=== PATIENT | female | born 1935 | race Caucasian/White ===

== ENCOUNTER 2018-08-22 19:43 | Inpatient (IN) | payer MEDICARE, BC ==
[~2018-08-22] VITALS: Wt 44.8 kg
[~2018-08-22 19:43] MED LIST: 00186-0370-20 IH; AMITRIPTYLINE H10 M1 PO; ANTIVERT 25MG25 MG PO; ASA; ASPIRIN E.C. 8181 MG PO; ATIVAN 0.50.5 MG/TAB PO; BUTAL; CAFF; COLACE 100100 MG/CAP PO; DULCOLAX S10 MG/SUPP RC; FENTANYL 25 MCG TOP; IMODIUM 2MG CAPS2 MG PO; IPRATROPIUM BROM3 M1 IH; LIPITOR 10MG10 MG PO; LOPRESSOR 225 MG/TAB PO; MACROBID 1100 MG/CAP PO; MIRALAX PA17 GM/Dose PO; NITROSTAT0.4 MG/TAB SL; NORCO 325 MG-51 TAB PO; NORCO 325 MG-7.1 TAB PO; OSCAL 500 TAB500 MG PO; PEPCID 20MG TAB20 MG PO; PLAVIX 75MG TAB75 MG PO; PROAIR HFA0.09 MG/AC IH; RECLAST5 MG/100 M IV; REMERON 15M15 MG/TA1 PO; RT ADVAIR HFA 1112 G INH; RT SPIRIVA18 MCG INH; SENOKOT S 50 MG1 TAB PO; SINGULAIR 110 MG/TAB PO; SPIRIVA18 MCG IH; TYLENOL 325MG325 MG PO; VASOTEC 10M10 MG/TAB PO; VENTOLIN0.09 MG IH; VITAMIN D32000 IU PO; ZOFRAN 4MG T4 MG/TAB PO; ZOFRAN INJ4 MG/2 ML IV; ZOFRAN ODT4 MG PO
[2018-08-22 20:35] LABS: BASO # 0.1 (0.0-0.2); BASO % 0.6 % (0.0-2.0); EOS # 0.1 (0.0-0.7); EOS % 0.7 % (0-4.0); GRAN # 10.3 (1.4-6.5); HEMATOCRIT 42.7 % (37.0-47.0); HEMOGLOBIN 13.9 g/dl (12.5-16.0); MEAN CELL VOLUME 95 fl (80.0-100.0); MEAN CORPUSCULAR HEMOGLOBIN 31 pg (27.0-31.0); MEAN CORPUSCULAR HGB CONC 33 g/dl (33.0-37.0); MEAN PLATELET VOLUME 9.7 fl (7.4-10.4); MONO # 0.8 (0.1-0.6); MONO % 6.3 % (1.7-9.3); PLATELET COUNT 305 K/mm3 (130-400); REDCELL DISTRIBUTION WIDTH-CV 13.2 % (11.5-14.5)
[2018-08-22 20:45] LABS: ALANINE AMINOTRANSFERASE 32 U/L (9-52); ALBUMIN 4.4 gm/dL (3.5-5.0); ALKALINE PHOSPHATASE 90 U/L (50-136); ANION GAP 10 mmol/L (7-16); AST,SGOT 26 U/L (15-37); BILIRUBIN,TOTAL 0.9 mg/dL (0.0-1.0); BLOOD UREA NITROGEN 23 mg/dL (7-17); CALCIUM 9.5 mg/dL (8.4-10.2); CARBON DIOXIDE 24 mmol/L (22-30); CHLORIDE 105 mmol/L (98-107); CREATININE, serum 0.84 mg/dL (0.52-1.25); GLUCOSE 96 mg/dL (74-106); POTASSIUM 4.1 mmol/L (3.4-5.0); SODIUM 140 mmol/L (137-145); TOTAL PROTEIN 8.2 gm/dL (6.4-8.2)
[2018-08-22 20:47] LABS: C-REACTIVE PROTEIN < 0.5 mg/dL (0.0-0.9)
[2018-08-22 20:52] LABS: ARTERIAL BLD GAS O2 SATURATION 93.3 % (92-100); ARTERIAL BLD GAS TCO2 CT 22.3; ARTERIAL BLOOD GAS BASE EXCESS -2.5 (-2-2); ARTERIAL BLOOD GAS HCO3 21.3 meq/L (22-26); ARTERIAL BLOOD GAS PCO2 33.9 mmHg (35-45); ARTERIAL BLOOD GAS PO2 67.1 mmHg (80-100); ARTERIAL BLOOD GAS pH 7.42 (7.35-7.45)
[2018-08-22 20:54] LABS: TROPONIN-I < 0.012 ng/mL (0.000-0.034)
[2018-08-22 22:36] LABS: INR 1.1 (0.8-3.0); PROTHROMBIN TIME 12.1 SECONDS (9.7-12.8)
[2018-08-22 22:39] LABS: PARTIAL THROMBOPLASTIN TIME 27.1 SECONDS (26.0-37.0)
[2018-08-22] MEDS ORDERED: SPIRIVA RE2.5 MCG/Ac INH (23:53)
[2018-08-22] MEDS ORDERED: SYNTHROID0.05 MG/TA PO (23:55)
[2018-08-22] MEDS ORDERED: COZAAR100 MG PO (23:56)
[2018-08-22] MEDS ORDERED: BYSTOLIC5 MG PO (23:56)
[2018-08-23] VITALS (463 sets, daily range): BP systolic 99–153; BP diastolic 61–88; PULSE 51–84; TEMP 97.7–97.9; O2SAT 92–100
[2018-08-23 05:55] LABS: HEMOGLOBIN 13.7 g/dl (12.5-16.0); MEAN CELL VOLUME 95 fl (80.0-100.0); MEAN CORPUSCULAR HEMOGLOBIN 31 pg (27.0-31.0); MEAN CORPUSCULAR HGB CONC 33 g/dl (33.0-37.0); MEAN PLATELET VOLUME 9.8 fl (7.4-10.4); PLATELET COUNT 303 K/mm3 (130-400); RED BLOOD COUNT 4.41 M/mm3 (4.10-5.30); REDCELL DISTRIBUTION WIDTH-CV 13.2 % (11.5-14.5)
[2018-08-23 06:09] LABS: CALCIUM 9.3 mg/dL (8.4-10.2); CREATININE, serum 0.77 mg/dL (0.52-1.25); POTASSIUM 4.6 mmol/L (3.4-5.0)
[2018-08-23 07:09] LABS: BAND 8 % (0-10); LYMPHOCYTE 4 % (20.0-51.0); NEUTROPHILS 87 % (42.0-75.2); PLATELET ESTIMATE NORMAL (NORMAL)
[2018-08-23 07:10] LABS: HYPOCHROMIA 1+
[2018-08-24 03:06] VITALS: BP 111/57; PULSE 84
[2018-08-24 07:15] VITALS: BP 111/59; PULSE 62; TEMP 97.8
[2018-08-24] MEDS ORDERED: ELIQUIS 5MG PO (09:19)
[2018-08-24] MEDS ORDERED: PREDNISONE20 MG PO (09:19)
[2018-08-24 11:32] VITALS: BP 110/59; PULSE 74; TEMP 97.8
[2018-08-24 13:02] LABS: COLLECTION METHOD CLEAN CATCH
[2018-08-24 13:13] LABS: MUCOUS Present /lpf; PH 5 (5-8); SQUAMOUS EPITHELIAL 0-2 /hpf; URINE APPEARANCE Clear; URINE BACTERIA None Seen /hpf; URINE BILIRUBIN Negative (NEGATIVE); URINE BLOOD Negative (NEGATIVE); URINE COLOR Yellow; URINE GLUCOSE Negative (NEGATIVE); URINE KETONE Negative (NEGATIVE); URINE LEUKOCYTE ESTERASE 1+ (NEGATIVE); URINE NITRATE Negative (NEGATIVE); URINE PROTEIN(semi-quant) 1+ (NEGATIVE); URINE UROBILINOGEN Negative (NEGATIVE)
== END 2018-08-24 15:15 | disposition home or self-care (01) | DRG 175 ==
LOC: COL.ER 19:43 → MEDICAL 22:45 → ICU 22:45 → MEDICAL 08-23 15:36
PROVIDERS: Emergency Medicine; Hospitalist; Nurse Practitioner Family
DX: I26.99 Other pulmonary embolism without acute cor pulmonale (principal); J96.21 Acute and chronic respiratory failure with hypoxia; I82.412 Acute embolism and thrombosis of left femoral vein; Z66 Do not resuscitate; I10 Essential (primary) hypertension; J44.9 Chronic obstructive pulmonary disease, unspecified; E78.5 Hyperlipidemia, unspecified; I25.10 Atherosclerotic heart disease of native coronary artery without angina pectoris; Z87.891 Personal history of nicotine dependence
CPT/HCPCS: OP; 99239; G0378; G8978-GP; G8979-GP; G8987-GO; G8988-GO; J1650; J7512; Q9967

== ENCOUNTER 2018-12-22 18:36 | Inpatient (IN) | payer MEDICARE, BC ==
[~2018-12-22] VITALS: Ht 162.6 cm; Wt 47.0 kg
[~2018-12-22 18:36] MED LIST changes: +BYSTOLIC5 MG PO; +COZAAR100 MG PO; +ELIQUIS 5MG PO; +PREDNISONE20 MG PO; +SPIRIVA RE2.5 MCG/Ac INH; +SYNTHROID0.05 MG/TA PO
[2018-12-22 19:26] LABS: BASO % 0.4 % (0.0-2.0); EOS # 0.1 (0.0-0.7); EOS % 0.7 % (0-4.0); GRAN # 8.4 (1.4-6.5); GRAN % 87.5 % (42.2-75.2); HEMATOCRIT 39.6 % (37.0-47.0); HEMOGLOBIN 12.9 g/dl (12.5-16.0); LYMPH # 0.5 (1.2-3.4); LYMPH % 5.4 % (20.0-51.0); MEAN CELL VOLUME 94 fl (80.0-100.0); MEAN CORPUSCULAR HEMOGLOBIN 31 pg (27.0-31.0); MEAN CORPUSCULAR HGB CONC 33 g/dl (33.0-37.0); MEAN PLATELET VOLUME 9.7 fl (7.4-10.4); MONO # 0.5 (0.1-0.6); MONO % 5.5 % (1.7-9.3); PLATELET COUNT 273 K/mm3 (130-400); REDCELL DISTRIBUTION WIDTH-CV 13.2 % (11.5-14.5)
[2018-12-22 19:40] LABS: ALANINE AMINOTRANSFERASE 12 U/L (9-52); ALBUMIN 4.1 gm/dL (3.5-5.0); ALKALINE PHOSPHATASE 95 U/L (50-136); ANION GAP 10 mmol/L (7-16); AST,SGOT 24 U/L (15-37); BILIRUBIN,TOTAL 0.7 mg/dL (0.0-1.0); BLOOD UREA NITROGEN 18 mg/dL (7-17); C-REACTIVE PROTEIN 0.6 mg/dL (0.0-0.9); CALCIUM 8.8 mg/dL (8.4-10.2); CARBON DIOXIDE 25 mmol/L (22-30); CHLORIDE 102 mmol/L (98-107); CREATININE, serum 0.78 (0.52-1.25); GLUCOSE 134 mg/dL (74-106); POTASSIUM 4.4 mmol/L (3.4-5.0); SODIUM 137 mmol/L (137-145); TOTAL PROTEIN 7.8 gm/dL (6.4-8.2)
[2018-12-22 19:49] LABS: TROPONIN-I < 0.012 ng/mL (0.000-0.035)
[2018-12-22 19:58] LABS: ARTERIAL BLD GAS O2 SATURATION 96.8 % (92-100); ARTERIAL BLD GAS TCO2 CT 22.4; ARTERIAL BLOOD GAS BASE EXCESS -3.1 (-2-2); ARTERIAL BLOOD GAS HCO3 21.3 meq/L (22-26); ARTERIAL BLOOD GAS PCO2 36.2 mmHg (35-45); ARTERIAL BLOOD GAS PO2 91.6 mmHg (80-100); ARTERIAL BLOOD GAS pH 7.39 (7.35-7.45)
[2018-12-22] MEDS ORDERED: ZOCOR 10MG10 MG PO (19:58)
--- NOTE | 2018-12-22 21:14 | NUR ---
Report received from DANIELE Yeager
[2018-12-22] MEDS ORDERED: ELIQUIS 5MG PO ×2 (21:26→21:34)
[2018-12-22] MEDS ORDERED: SPIRIVA RE2.5 MCG/Ac IH (21:32)
--- NOTE | 2018-12-22 22:15 | NUR ---
Patient arrived from ED. Resting in bed. Assesment complete. Lungs diminished all ramos. Denies SOA at this time. On 3 liters via nasal cannula. Cough present. Patient reports productive at times. On droplet precautions for pending RVP. Heart sounds normal. Bowels active x4. Pulses strong throughout. No edema noted. Abrasion to left lower leg present-scabbed over. Denies any patient. Orientated patient to medical floor and room. Call light is within reach of patient. INT to right hand without complications. Denies needs at this time.
[2018-12-22 22:31] VITALS: BP 135/57; PULSE 73; TEMP 98.6
--- NOTE | 2018-12-22 23:45 | NUR ---
Started IV fluids as ordered. Site free of complications at this time.
--- NOTE | 2018-12-23 00:57 | NUR ---
Resting in bed. Call light in reach.
--- NOTE | 2018-12-23 03:30 | NUR ---
Resting in bed. Denies needs. Call light in reach.
[2018-12-23 04:26] VITALS: BP 126/54; PULSE 72; TEMP 98.5
--- NOTE | 2018-12-23 06:20 | NUR ---
Patient had uneventful night. No complaints of difficulty breathing. Resting in bed this AM, reading breakfast menu. Denies needs. IV to right hand infusing at 125ml/hr without complications. Call light in reach.
--- NOTE | 2018-12-23 06:42 | NUR ---
Report given to DANIELE Ley
[2018-12-23 07:40] VITALS: BP 170/75; PULSE 89; TEMP 97.9
--- NOTE | 2018-12-23 08:16 | NUR ---
Assessment complete.patient awake,alert and oriented x3.denies pain or discomfort at this time.bilat upper lobes exp. wheezes,bilat lung bases diminished.breathing jagjit and unlabored.patient on 2l/nc and stats at 97%.IVF infusing to RH.linens changed and hygiene provided.pt on droplet isolation-RVP pending.no other needs voiced at this time.call light in reach
[2018-12-23 08:40] LABS: HEMATOCRIT 37.4 % (37.0-47.0); HEMOGLOBIN 12.1 g/dl (12.5-16.0); MEAN CELL VOLUME 95 fl (80.0-100.0); MEAN CORPUSCULAR HEMOGLOBIN 31 pg (27.0-31.0); MEAN CORPUSCULAR HGB CONC 32 g/dl (33.0-37.0); MEAN PLATELET VOLUME 10.3 fl (7.4-10.4); PLATELET COUNT 292 K/mm3 (130-400); RED BLOOD COUNT 3.93 M/mm3 (4.10-5.30)
[2018-12-23 08:54] LABS: ALBUMIN 3.7 gm/dL (3.5-5.0); BILIRUBIN,TOTAL 0.6 mg/dL (0.0-1.0); CALCIUM 8.1 mg/dL (8.4-10.2); CREATININE, serum 0.67 (0.52-1.25); POTASSIUM 4.1 mmol/L (3.4-5.0); TOTAL PROTEIN 7.2 gm/dL (6.4-8.2)
[2018-12-23 11:47] VITALS: BP 159/78; PULSE 79; TEMP 97.4
[2018-12-23 12:03] LABS: COLLECTION METHOD CATHETER
--- NOTE | 2018-12-23 12:09 | NUR ---
PHYSICAL THERAPIST REPORTS PT IV INFILTRATED.THIS RN ASSESSED IV AND NOTED INFILTRATION AND HEMATOMA AT IV SIDE-RIGHT HAND.PT IS ON ELIQUIS.PRESSURE APPLIED.NEW IV STARTED TO LEFT HAND.WILL CONTINUE TO MONITOR.
[2018-12-23 12:18] LABS: SQUAMOUS EPITHELIAL 0-2 /hpf; URINE BACTERIA None Seen /hpf; URINE RBC 0-2 /hpf
[2018-12-23 12:24] LABS: MUCOUS Present /lpf; PH 6 (5-8); URINE APPEARANCE Clear; URINE BILIRUBIN Negative (NEGATIVE); URINE BLOOD 1+ (NEGATIVE); URINE COLOR Yellow; URINE GLUCOSE 1+ (NEGATIVE); URINE KETONE Trace (NEGATIVE); URINE LEUKOCYTE ESTERASE Negative (NEGATIVE); URINE NITRATE Negative (NEGATIVE); URINE PROTEIN(semi-quant) Negative (NEGATIVE); URINE UROBILINOGEN Negative (NEGATIVE)
[2018-12-23 13:12] LABS: BAND 1 % (0-10); LYMPHOCYTE 8 % (20.0-51.0); NEUTROPHILS 91 % (42.0-75.2); PLATELET ESTIMATE NORMAL (NORMAL)
--- NOTE | 2018-12-23 14:44 | NUR ---
Plan: Patient reports that she resides in [facility] with her Jerson. Patient reoprts that she does not believe she iwll need home health care. Patient indicated that her PCP is Dr. Epifanio Carrasco. Patient reports that uses of [facility] for RX and uses a walker PRN and and 02 concentrator at home. Patient reports that he spouse will transport home. DPOA set to Jerson at . NO additonal needs identified at this time/
[2018-12-23 15:24] VITALS: BP 110/81; PULSE 76; TEMP 98
--- NOTE | 2018-12-23 17:25 | NUR ---
pt had a shower.states feels better.all meds given.VSS.denies any other needs at this time.report given to DANIELE Fraga.
--- NOTE | 2018-12-23 19:15 | NUR ---
Report given to Montse SANABRIA, pt denies needs, eating dinner, call ronen farrell
[2018-12-23 19:58] VITALS: BP 164/85; PULSE 76; TEMP 97.3
[2018-12-24 00:13] VITALS: BP 130/73; PULSE 75; TEMP 97.7
[2018-12-24 03:53] VITALS: BP 129/77; PULSE 73; TEMP 97.7
--- NOTE | 2018-12-24 04:38 | NUR ---
PT HAD UNEVENTFUL NOC. NO C/O PAIN OR N/V/D NOTED THIS SHIFT. PT PLEASANT AND COOPERATIVE WITH CARES. PT REMAINS ON DROPPLET PRECAUTIONS FOR PENDING RESPERTORY VIRUS PANEL. SPUTUM SAMPLE HASNT BEEN OBTIANED YET DUE TO NOT CAUGHING UP SPUTUM, CONTIANER LEFT AT BEDISDE. NO ISSUES OR CONSERNS VOICED
[2018-12-24 06:38] LABS: HEMOGLOBIN 11.1 g/dl (12.5-16.0); MEAN CELL VOLUME 93 fl (80.0-100.0); MEAN CORPUSCULAR HEMOGLOBIN 31 pg (27.0-31.0); MEAN CORPUSCULAR HGB CONC 33 g/dl (33.0-37.0); MEAN PLATELET VOLUME 10.1 fl (7.4-10.4); PLATELET COUNT 274 K/mm3 (130-400); RED BLOOD COUNT 3.62 M/mm3 (4.10-5.30); REDCELL DISTRIBUTION WIDTH-CV 13.2 % (11.5-14.5)
[2018-12-24 06:40] LABS: HEMATOCRIT 33.8 % (37.0-47.0)
[2018-12-24 06:47] LABS: CALCIUM 8.2 mg/dL (8.4-10.2); CREATININE, serum 0.67 (0.52-1.25); POTASSIUM 3.7 mmol/L (3.4-5.0)
[2018-12-24 07:28] LABS: LYMPHOCYTE 5 % (20.0-51.0); NEUTROPHILS 93 % (42.0-75.2); PLATELET ESTIMATE NORMAL (NORMAL)
[2018-12-24 07:58] VITALS: BP 133/70; PULSE 87; TEMP 98.3
--- NOTE | 2018-12-24 08:04 | NUR ---
Pt alert and oriented and remains on oxygen via nasal cannula at 2L. Pt am assessment and meds completed. Pt has SOB with exertion but at rest denies SOB. Pt rates pain 3/10 for headache and managed with PRN Tylenol. Pt IV patent no redness or infiltration noted. Pt call light in reach. Pt denies further needs.
[2018-12-24] MEDS ORDERED: PREDNISONE20 MG PO (10:34)
--- NOTE | 2018-12-24 10:46 | NUR ---
Patient is dc home today with spouse.
--- NOTE | 2018-12-24 11:40 | NUR ---
Pt alert and oriented. Pt given discharge instructions and education. Pt IV discontinued. Pressure held to IV site and no bleeding with pressure dressing applied. Pt remains on oxygen at 2L via nasal cannula and has portable unit to go home with. Pt already dressed. Aide to help gather all belongings. Pt given abx as ordered. Pt called spouse to pick her up. Pt has call light in reach.
== END 2018-12-24 11:30 | disposition home or self-care (01) | DRG 189 ==
LOC: COL.ER 18:36 → MEDICAL 21:00
PROVIDERS: Emergency Medicine; Hospitalist; Nurse Practitioner Family; ADMIT Internal Medicine
DX: J96.21 Acute and chronic respiratory failure with hypoxia (principal); J44.1 Chronic obstructive pulmonary disease with (acute) exacerbation; Z68.1 Body mass index [BMI] 19.9 or less, adult; Z66 Do not resuscitate; J20.5 Acute bronchitis due to respiratory syncytial virus; I10 Essential (primary) hypertension; E86.0 Dehydration; E78.5 Hyperlipidemia, unspecified; I25.10 Atherosclerotic heart disease of native coronary artery without angina pectoris; Z86.711 Personal history of pulmonary embolism; Z79.01 Long term (current) use of anticoagulants; Z86.718 Personal history of other venous thrombosis and embolism; E03.9 Hypothyroidism, unspecified; Z95.5 Presence of coronary angioplasty implant and graft; Z87.891 Personal history of nicotine dependence; B97.4 Respiratory syncytial virus as the cause of diseases classified elsewhere; R63.6 Underweight
CPT/HCPCS: 99239; J2930; J7030; J7512

== ENCOUNTER 2019-04-10 11:59 | Outpatient (CLI) | payer MEDICARE, BC ==
[~2019-04-10] VITALS: Ht 162.6 cm; Wt 48.9 kg
[~2019-04-10 11:59] MED LIST changes: +SPIRIVA RE2.5 MCG/Ac IH; +ZOCOR 10MG10 MG PO
[2019-04-10 12:20] VITALS: BP 195/83; PULSE 72; TEMP 97.7
== END 2019-04-10 14:23 | disposition home or self-care (01) ==
LOC: EUO 11:59
DX: M81.0 Age-related osteoporosis without current pathological fracture (principal)
CPT/HCPCS: J0897

== ENCOUNTER 2019-10-17 11:15 | Outpatient (CLI) | payer MEDICARE, BC ==
[~2019-10-17] VITALS: Ht 162.6 cm; Wt 47.9 kg
[2019-10-17 11:32] VITALS: BP 169/76; PULSE 69; TEMP 97.4
== END 2019-10-17 11:49 | disposition home or self-care (01) ==
LOC: EUO 11:15
DX: M81.0 Age-related osteoporosis without current pathological fracture (principal)
CPT/HCPCS: J0897

== ENCOUNTER 2020-03-01 13:36 | Emergency (ER) | payer MEDICARE, BC ==
[~2020-03-01] VITALS: Ht 162.6 cm; Wt 45.5 kg
[2020-03-01 13:43] VITALS: TEMP 99.8
[2020-03-01] MEDS ORDERED: ULTRAM 50MG TAB50 MG PO (14:39)
[2020-03-01 14:45] VITALS: BP 148/86; PULSE 90
== END 2020-03-01 14:49 | disposition home or self-care (01) ==
LOC: COL.ER 13:36
DX: S63.502A Unspecified sprain of left wrist, initial encounter (principal); I25.10 Atherosclerotic heart disease of native coronary artery without angina pectoris; I10 Essential (primary) hypertension; I25.2 Old myocardial infarction; J44.9 Chronic obstructive pulmonary disease, unspecified; Z79.82 Long term (current) use of aspirin; Z79.899 Other long term (current) drug therapy; Z79.51 Long term (current) use of inhaled steroids; Y92.009 Unspecified place in unspecified non-institutional (private) residence as the place of occurrence of the external cause; W01.0XXA Fall on same level from slipping, tripping and stumbling without subsequent striking against object, initial encounter

== ENCOUNTER 2020-12-28 13:12 | Outpatient (CLI) | payer MEDICARE, BC ==
[~2020-12-28] VITALS: Ht 162.6 cm; Wt 48.9 kg
[~2020-12-28 13:12] MED LIST changes: +ULTRAM 50MG TAB50 MG PO
[2020-12-28] MEDS ORDERED: ELIQUIS 2.5 PO (13:31)
[2020-12-28 14:02] VITALS: BP 108/64; BP 183/94; PULSE 106; PULSE 83; TEMP 97.4; TEMP 97.8
== END 2020-12-28 14:02 | disposition home or self-care (01) ==
LOC: EUO 13:12
DX: M81.0 Age-related osteoporosis without current pathological fracture (principal); Z79.899 Other long term (current) drug therapy
CPT/HCPCS: J0897

== ENCOUNTER 2021-06-21 05:27 | Inpatient (IN) | payer MEDICARE, BC ==
[2021-06-21] VITALS (7 sets, daily range): BP systolic 144–176; BP diastolic 82–112; PULSE 48–146; TEMP 98.1–98.7
[~2021-06-21] VITALS: Ht 170.2 cm; Wt 63.6 kg
[~2021-06-21 05:27] MED LIST changes: +ELIQUIS 2.5 PO
[2021-06-21 05:45] LABS: BASO # 0.1 (0.0-0.2); BASO % 0.5 % (0.0-2.0); EOS % 0.4 % (0-4.0); GRAN # 8.8 (1.4-6.5); GRAN % 86.4 % (42.2-75.2); HEMATOCRIT 41.6 % (37.0-47.0); HEMOGLOBIN 13.7 g/dl (12.5-16.0); LYMPH # 0.7 (1.2-3.4); MEAN CELL VOLUME 94 fl (80.0-100.0); MEAN CORPUSCULAR HEMOGLOBIN 31 pg (27.0-31.0); MEAN CORPUSCULAR HGB CONC 33 g/dl (33.0-37.0); MEAN PLATELET VOLUME 9.8 fl (7.4-10.4); MONO # 0.5 (0.1-0.6); MONO % 5.3 % (1.7-9.3); PLATELET COUNT 320 K/mm3 (130-400); RED BLOOD COUNT 4.42 M/mm3 (4.10-5.30); REDCELL DISTRIBUTION WIDTH-CV 13.4 % (11.5-14.5)
[2021-06-21 05:53] LABS: INR 1.2 (0.8-3.0); PROTHROMBIN TIME 12.8 SECONDS (9.7-12.8)
[2021-06-21 05:56] LABS: PARTIAL THROMBOPLASTIN TIME 25.6 SECONDS (26.0-37.0)
[2021-06-21 06:07] LABS: ALBUMIN 3.9 gm/dL (3.4-4.8); BILIRUBIN,TOTAL 0.9 mg/dL (0.2-1.2); CALCIUM 9.4 mg/dL (8.4-10.2); CREATININE, serum 0.81 mg/dL (0.57-1.11); TOTAL PROTEIN 8.1 gm/dL (6.2-8.1)
[2021-06-21 06:10] LABS: ARTERIAL BLD GAS O2 SATURATION 96.1 % (92-100); ARTERIAL BLOOD GAS BASE EXCESS -3.4 (-2-2); ARTERIAL BLOOD GAS PCO2 31.3 mmHg (35-45); ARTERIAL BLOOD GAS PO2 84.3 mmHg (80-100); ARTERIAL BLOOD GAS pH 7.42 (7.35-7.45)
[2021-06-21 06:46] LABS: TROPONIN-I 0.024 ng/mL (0.00-0.033)
[2021-06-21 06:48] LABS: COLLECTION METHOD CATHETER
[2021-06-21 07:23] LABS: PH 7 (5-8); SQUAMOUS EPITHELIAL None Seen /hpf; URINE APPEARANCE Clear; URINE BACTERIA Rare /hpf; URINE BILIRUBIN Negative (NEGATIVE); URINE BLOOD 1+ (NEGATIVE); URINE COLOR Straw; URINE GLUCOSE Negative (NEGATIVE); URINE KETONE Trace (NEGATIVE); URINE LEUKOCYTE ESTERASE Trace (NEGATIVE); URINE NITRATE Negative (NEGATIVE); URINE PROTEIN(semi-quant) Negative (NEGATIVE); URINE RBC 0-2 /hpf; URINE UROBILINOGEN Negative (NEGATIVE)
[2021-06-21] MEDS ORDERED: BYSTOLIC5 MG PO (11:26)
[2021-06-21] MEDS ORDERED: DRAMAMINE 50MG50 MG PO (11:34)
[2021-06-21] MEDS ORDERED: TYLENOL 500MG500 MG PO (11:35)
--- NOTE | 2021-06-21 14:26 | NUR ---
recieved call from telemetry reporting elevated hr in 140's sustained for "about a minute". pt denying chest pain, sob, dizziness, reports weakness that has been chronic. pt vitals obtained, ekg ordered, physician called with results. new order of metoprolol xr written. before med given pt back in NS in 80's.
--- NOTE | 2021-06-21 17:38 | NUR ---
PT HAD RUN OF A-FLUTTER, RESOLVED AFTER TREATMENT. PT IN SINUS RHYTHM. PT RESTING COMFORTABLY IN BED. IV INFUSING, TOOK MEDICATIONS PRESCRIBED.
--- NOTE | 2021-06-21 22:03 | NUR ---
PT RESTING IN BED. EVENING MEDICATIONS GIVEN. DENIES ANY PAIN. NEW IV STARTED TO R AC, L AC IV INFILTRATED AND DISCONTINUED. DENIED ANY NEEDS. AT THIS TIME. WILL CONTINUE TO MONITOR.
[2021-06-22 04:26] VITALS: BP 154/74; PULSE 72; TEMP 97.8
--- NOTE | 2021-06-22 05:37 | NUR ---
PT HAD A RESTFUL NIGHT. DENIES ANY NEEDS. WILL CONTINUE TO MONITOR.
[2021-06-22 06:38] LABS: MEAN CELL VOLUME 95 fl (80.0-100.0); MEAN CORPUSCULAR HEMOGLOBIN 31 pg (27.0-31.0); MEAN CORPUSCULAR HGB CONC 32 g/dl (33.0-37.0); PLATELET COUNT 324 K/mm3 (130-400); RED BLOOD COUNT 3.91 M/mm3 (4.10-5.30); REDCELL DISTRIBUTION WIDTH-CV 13.7 % (11.5-14.5)
[2021-06-22 06:56] LABS: CALCIUM 7.5 mg/dL (8.4-10.2); CREATININE, serum 0.68 mg/dL (0.57-1.11); POTASSIUM 3.3 mmol/L (3.5-4.5)
[2021-06-22 07:19] VITALS: BP 172/68; PULSE 72; TEMP 97
[2021-06-22 07:28] LABS: BAND 30 % (0-10); LYMPHOCYTE 5 % (20.0-51.0); NEUTROPHILS 65 % (42.0-75.2)
[2021-06-22 07:30] LABS: PLATELET ESTIMATE NORMAL (NORMAL)
[2021-06-22 11:24] VITALS: BP 155/68; PULSE 88; TEMP 97.9
--- NOTE | 2021-06-22 11:59 | NUR ---
Tele informed this RN that patient had a 10 sec run of SVT in the 150's. Patient is asymptomatic. Dr. Montoya notified.
[2021-06-22 13:27] LABS: MAGNESIUM 2.1 mg/dL (1.6-2.6); POTASSIUM 3.7 mmol/L (3.5-4.5)
--- NOTE | 2021-06-22 15:03 | NUR ---
Repairer Shoe Sticks met with patient to discuss discharge planning. Patient lives in [place] with her , Jerson (ph#[phone]) and sees Dr. Carrasco for primary care. Patient picks up medications from [facility] with no difficulties. Patient uses a front wheeled walker at home and reports she is mostly independent with ADLS, however gets some assistance from her , Jerson. Patient reports she has DPOA-HC, however SW did not locate copy in EMR. Patient states she plans to return home upon discharge. SW spoke with patient about Home Health services, however patient reports her does not want HH services in the home. Discharge Plan: Home
[2021-06-22 17:07] VITALS: BP 167/77; PULSE 73; TEMP 97.8
--- NOTE | 2021-06-22 18:57 | NUR ---
Patient has had an ok day. Scheduled meds given. Shift assessment preformed. Patient currently requiring 2 L of O2 via nasal cannula. Fluids running as ordered. Generalized bruising noted. Skin tear on LLE noted, dressing placed. Generalized skin dryness noted. Lung sounds diminished. Patient has dyspnea upon exertion. Patient denies any pain, discomfort, or further needs a this time. Call light in reach. Fall precautions in place.
[2021-06-22 19:39] VITALS: BP 173/94; PULSE 94; TEMP 97.7
--- NOTE | 2021-06-22 20:00 | NUR ---
Patient is resting in bed watching TV. Alert and orientd x 4, VSS, Tele in place. 2L NC. Denies pain, nausea or vomiting. NS at 125 ml/hr. Assessment completed, meds provided, no further needs at this time. Call light within reach.
--- NOTE | 2021-06-22 20:40 | NUR ---
Contacted by RT, who discontinued O2 therapy. Patient over 90's. No need of 02.
[2021-06-23] VITALS (7 sets, daily range): BP systolic 114–178; BP diastolic 68–93; PULSE 68–90; TEMP 97.7–98.7
--- NOTE | 2021-06-23 00:07 | NUR ---
Patient continue at RA and 94% saturation.
--- NOTE | 2021-06-23 01:02 | NUR ---
Patient reports headache in her left side. Tylenol provided. SBP >170, PRN provided.
--- NOTE | 2021-06-23 05:58 | NUR ---
Patient requires antianxiety medication, PRN provided. She would like to talk to SW about going to a usp for some time after discharge since she does not feell that her home will allow her to use a wheelchair to use the bathroom. She wants to come back to her prehosp independence before coming back home.
--- NOTE | 2021-06-23 06:52 | NUR ---
Bedside shift report complete, report received from DANIELE Villegas. Pt. resting in bed, awake. Pt. requesting coffee and denies further needs at this time. Student nurse Zina in room to obtain vitals at this time. Call light and belongings in reach.
--- NOTE | 2021-06-23 06:58 | NUR ---
Patient has had a calm night. She has been receiving fluids. Complained about headache. No further needs. Shift refport given to day shift nurse.
[2021-06-23 07:12] LABS: GRAN # 6.3 K/mm3 (1.4-6.5); GRAN % 88.1 % (42.2-75.2); HEMOGLOBIN 11.5 g/dl (12.5-16.0); LYMPH # 0.4 K/mm3 (1.2-3.4); LYMPH % 5.3 % (20.0-51.0); MEAN CELL VOLUME 94 fl (80.0-100.0); MEAN CORPUSCULAR HEMOGLOBIN 31 pg (27.0-31.0); MEAN CORPUSCULAR HGB CONC 33 g/dl (33.0-37.0); MEAN PLATELET VOLUME 10.3 fl (7.4-10.4); MONO # 0.4 K/mm3 (0.1-0.6); MONO % 5.9 % (1.7-9.3); PLATELET COUNT 336 K/mm3 (130-400); RED BLOOD COUNT 3.74 M/mm3 (4.10-5.30)
[2021-06-23 07:29] LABS: CALCIUM 7.1 mg/dL (8.4-10.2); CREATININE, serum 0.64 mg/dL (0.57-1.11); POTASSIUM 3.8 mmol/L (3.5-4.5)
--- NOTE | 2021-06-23 11:49 | NUR ---
Pt.'s BP elevated. Additonally, Dr. Zavala reports in his note IVF can be discontinued. Dr. Montoya notified via SANDY Lofton. SANDY Lofton reports IVF can be discontinued and is aware, PRN hydralazine has been administered.
--- NOTE | 2021-06-23 12:27 | NUR ---
PARAMJIT Hurtado asked for me to call , Jerson. He had many questions concerning pt's status. I called Jerson and spoke with him concerning [facility] guidelines for status. "I am very angry. I work really hard and now that I need [facility] to pay or have her INPT they won't. She is really sick. " I told Jerson that [facility] YUSUF and I would do everything we could to help him establish a discharge plan that could work for them. I gave him my phone number and requested him to call back if any other questions arose.
--- NOTE | 2021-06-23 16:09 | NUR ---
Appraisal Coordinator was notified that Hospitalist put in IPR screen for patient as she did not feel she was ready to return home at this time. PARAMJIT contacted Katie, IPR Director to give referral. Katie met with patient, who advised she was not interested in going to IPR and wanted to go to a SNF. SW followed up with patient and advised that due to her observation status, a SNF stay would not be covered by Medicare and would be private pay. SW again attempted to speak with patient about IPR, however patient advised she cannot tolerate three hours of therapy a day and would be overwhelmed. Patient advised she can afford private pay, however would like for SW to speak with her , Jerson about it. Patient is agreeable to have referrals sent to [facility], and [facility]. PARAMJIT contacted each facility and faxed referrals. PARAMJIT then contacted patient's Jerson, who is agreeable to patient discharge to SNF however is very upset by the fact that she is observation status. Jerson advised they can afford to private pay but does not think they should have to. PARAMJIT advised Jerson that patient does not meet inpatient criteria at this time. PARAMJIT also facilitated a phone call between Jerson and Sandra, milk condenser. Sandra also spoke with Jerson about patient's status (see immigration case manager note for further detail). Sandra advised that Jerson was upset during the call and that he stated he would be calling his research attorney about this matter. Sandra notified Soledad Dutton, Class A Truck Driver. PARAMJIT was contacted by Michael at [facility] who advised they would be able to accept, however when he contacted Jerson, he was concerned about Jerson's response to patient's status. Michael advised that Jerson stated he was in touch with an research attorney and did not agree that patient should be observation status. PARAMJIT was also contacted by Rachel who requested patient's exercise oximetry. PARAMJIT faxed. Discharge Plan: [facility] has accepted, pending screens from [facility] and [facility]. Also pending financial arrangements as patient is observation status.
--- NOTE | 2021-06-23 16:23 | NUR ---
Directional Bore Operator was contacted by Sharon at [facility] who advised they can accept and would be willing to use the COVID waiver for a skilled stay that way patient does not have to private pay. SW to follow up with patient and about preference for discharge.
--- NOTE | 2021-06-23 16:28 | NUR ---
Video Production Specialist spoke with Rachel at [facility] who advised they can accept and also were open to using the COVID waiver if Hospitalist is open to writing orders for skilled.
--- NOTE | 2021-06-23 17:50 | NUR ---
Pt.'s BP remains elevated after PRN hydralazine has been administered. Dr. Montoya notified on telephone, new order obtained for amlodipine PO.
--- NOTE | 2021-06-23 20:00 | NUR ---
Patient is resting in bed, alert and oriented x 4, hypertensive, Tele in place, 2L O2 NC, denies pain, nausea or vomiting. Assessment completed, meds provided, no further needs at this time. Call light withn reach.
[2021-06-24] VITALS (11 sets, daily range): BP systolic 107–138; BP diastolic 56–87; PULSE 18–154; TEMP 96.5–98.3
--- NOTE | 2021-06-24 06:32 | NUR ---
Patient has been stable along the night. Continues at 2L O2 NC ant taking pills with apple sauce. She had a good time sleeping. Shift report will be given to day nurse.
--- NOTE | 2021-06-24 06:50 | NUR ---
Pt. progressing w/ plan of care. Pt. resting in bed, awake. Student nurse Modesta to help w/ care today along with this speech writer. Pt. requesting PO lorazepam and denies other needs at this time. Call light and belongings in reach.
[2021-06-24 08:12] LABS: CALCIUM 7.5 mg/dL (8.4-10.2); CREATININE, serum 0.65 mg/dL (0.57-1.11); POTASSIUM 4.2 mmol/L (3.5-4.5)
--- NOTE | 2021-06-24 09:01 | NUR ---
Call from Rishabh from ICU tele monitoring. Pt.'s HR elevated up to [address] Montoya notified, Dr. Montoya at bedside to assess pt. Plan for Dr. Leigh to see patient and to get pt. on cardizem drip. Dr. Montoya to place cardizem orders.
--- NOTE | 2021-06-24 09:11 | NUR ---
Dr. Leigh in to see patient at this time. Dr. Leigh requesting to hold off on administering pt.'s bisprolol and losartan at this time. Dr. Leigh reports new orders will be placed for a cardizem drip. Pt. reports feeling slightly better since IV lopressor has been administered. Pt.'s HR still up to 145 at this time, Dr. Leigh at bedside and aware.
--- NOTE | 2021-06-24 09:53 | NUR ---
Pt. remains asymptomatic, HR is 145. Cardizem drip initiated at 0930. Dr. Leigh notified [id number] regarding persistent elevated HR. Dr. Leigh reports it may take up to an hour for heart rate to decrease on cardizem drip, and requesting rate to remain at 3ml/hr for this moment.
--- NOTE | 2021-06-24 11:04 | NUR ---
Pt. has been on the rate of 5ml/hr cardizem drip for 40 minutes. Pt.'s HR still between 127-163bpm. BP stable, pt. remains asymptomatic. Nurse Serena Crawford notified on telephone, she is working alongside Dr. Liegh today. Nurse Lyons reports she will discuss plan of care w/ Dr. Leigh and call this RN back.
--- NOTE | 2021-06-24 14:12 | NUR ---
[employer]en Fishing Crew Member followed up with patient's , Jerson and advised that both [facility] and [facility] advised they would be willing to utilize the COVID waiver to bring patient in under her Medicare. Jerson stated he was happy with this news and will contact patient to discuss preference. Jerson followed up with SW after conversation with patient and advised both he and patient prefer [facility]. SW notified all three facilities on patient's preference. Sharon with [facility] advised they would be able to accept today. During rounds, it was discovered that patient is in AFib and would not be ready for discharge today. Patient to be upgraded to inpatient status. SW updated patient's , Jerson. Discharge Plan: [facility]
--- NOTE | 2021-06-24 14:29 | NUR ---
Primary nurse was assisted with [phone] patient care by [employer] student Modesta Yates and [employer] instructor Jessie Méndez MSN, RN
--- NOTE | 2021-06-24 15:50 | NUR ---
Pt. en route for cardioversion, DANIELE Devries bringing pt. to procedure room. Pt. and agreeable w/ plan of care.
--- NOTE | 2021-06-24 17:52 | NUR ---
Call from Dr. Leigh received this afternoon regarding pt.'s sotalol PO and cardizem drip. Dr. Leigh instructed this RN to administer sotalol and wait one hour, and to stop cardizem drip. One hour has passed. Cardizem drip stopped at this time.
--- NOTE | 2021-06-24 20:00 | NUR ---
Patient is lying in bed, alert and oriented, VSS, Tele in place NSR, 2L O2 NC, denies pain, nausea or vomiting, Assessment completed, meds provided, no further needs at this time. Call light within reach.
[2021-06-25 02:48] VITALS: BP 147/72; PULSE 65; TEMP 98
--- NOTE | 2021-06-25 06:10 | NUR ---
Patient had a calm night without further heart issues. Shift report will be given to day nurse.
[2021-06-25 06:36] LABS: BASO % 0.1 % (0.0-2.0); GRAN # 9.1 K/mm3 (1.4-6.5); GRAN % 87.1 % (42.2-75.2); HEMATOCRIT 37.6 % (37.0-47.0); HEMOGLOBIN 12.3 g/dl (12.5-16.0); LYMPH # 0.5 K/mm3 (1.2-3.4); MEAN CELL VOLUME 94 fl (80.0-100.0); MEAN CORPUSCULAR HEMOGLOBIN 31 pg (27.0-31.0); MEAN CORPUSCULAR HGB CONC 33 g/dl (33.0-37.0); MEAN PLATELET VOLUME 10.4 fl (7.4-10.4); MONO # 0.7 K/mm3 (0.1-0.6); PLATELET COUNT 317 K/mm3 (130-400); RED BLOOD COUNT 3.99 M/mm3 (4.10-5.30); REDCELL DISTRIBUTION WIDTH-CV 14.6 % (11.5-14.5)
[2021-06-25 07:04] VITALS: BP 142/69; PULSE 70; TEMP 97.6
[2021-06-25 07:52] LABS: CREATININE, serum 0.74 mg/dL (0.57-1.11)
--- NOTE | 2021-06-25 09:52 | NUR ---
Initial visit; Patient thanked Histopath Tech for looking in on her, offering spiritual care and to keep her in Histopath Tech's prayers.
[2021-06-25 11:23] VITALS: BP 146/75; PULSE 73; TEMP 98.2
--- NOTE | 2021-06-25 14:13 | NUR ---
Primary nurse was assisted with [phone] patient care by [employer] student Modesta Yates and [employer] instructor Jessie Méndez MSN, RN
[2021-06-25 15:20] VITALS: BP 153/81; PULSE 73; TEMP 97.6
--- NOTE | 2021-06-25 16:05 | NUR ---
Line Out Worker faxed clinical updates to Sharon at [facility] who advised they can accept patient on Monday, not over the weekend. Patient reviewed this with Hospitalist who is agreeable to this plan. Discharge Plan: [facility]
--- NOTE | 2021-06-25 19:41 | NUR ---
Patient assessed at this time. Denies pain and discomfort. Peripheral INT to right AC. On oxygen at 2 L/min via NC. Reports SOB and dyspnea with exertion, denies at rest. LS CTA. Respirations even and unlabored. HRR. Telemetry in place. Bruising to BUE/BLE. Voices no questions, needs, or concerns at this time. Resting in bed with call light within reach.
[2021-06-25 20:32] VITALS: BP 141/69; PULSE 69; TEMP 97.7
[2021-06-26 01:02] VITALS: BP 134/76; PULSE 61; TEMP 98
[2021-06-26 05:23] VITALS: BP 145/87; PULSE 87; TEMP 97.8
--- NOTE | 2021-06-26 05:59 | NUR ---
Patient has been resting in bed with call light within reach. Has voiced no questions, needs, or concerns this shift. Has denied having pain and discomfort this shift.
[2021-06-26 07:06] LABS: BASO % 0.1 % (0.0-2.0); GRAN # 9.2 K/mm3 (1.4-6.5); GRAN % 86.9 % (42.2-75.2); HEMATOCRIT 40.5 % (37.0-47.0); HEMOGLOBIN 12.9 g/dl (12.5-16.0); LYMPH # 0.6 K/mm3 (1.2-3.4); LYMPH % 5.7 % (20.0-51.0); MEAN CELL VOLUME 97 fl (80.0-100.0); MEAN CORPUSCULAR HEMOGLOBIN 31 pg (27.0-31.0); MEAN CORPUSCULAR HGB CONC 32 g/dl (33.0-37.0); MEAN PLATELET VOLUME 10.2 fl (7.4-10.4); MONO # 0.7 K/mm3 (0.1-0.6); MONO % 6.4 % (1.7-9.3); PLATELET COUNT 350 K/mm3 (130-400); RED BLOOD COUNT 4.16 M/mm3 (4.10-5.30); REDCELL DISTRIBUTION WIDTH-CV 14.5 % (11.5-14.5)
[2021-06-26 07:22] LABS: CALCIUM 8.8 mg/dL (8.4-10.2); CREATININE, serum 0.77 mg/dL (0.57-1.11); POTASSIUM 5.3 mmol/L (3.5-4.5)
[2021-06-26 07:47] VITALS: BP 173/85; PULSE 68; TEMP 98.3
[2021-06-26 11:18] VITALS: BP 148/81; PULSE 81; TEMP 97.8
--- NOTE | 2021-06-26 15:30 | NUR ---
Received report from Harriet. Pt resting in bed, denies any needs or complaints at this time
[2021-06-26 16:03] VITALS: BP 121/54; PULSE 76; TEMP 98.1
--- NOTE | 2021-06-26 19:38 | NUR ---
Patient assessed. Alert and oriented x 4, and able to make needs known. Denies having pain and discomfort at this time. Peripheral INT to right AC flushed. Site without redness, warmth, swelling, and pain. Denies SOB and dyspnea. On oxygen at 3 L/min via NC. LS CTA. Respirations even and unlabored. Telemetry in place. Generalized bruising. Dressing to skin tear on LLE is CDI. Voices no questions, needs, or concerns at this time. Resting in bed with call light within reach.
[2021-06-26 19:45] VITALS: BP 134/68; PULSE 69; TEMP 97.6
[2021-06-27 04:43] VITALS: BP 137/75; PULSE 56; TEMP 97.6
--- NOTE | 2021-06-27 06:08 | NUR ---
Patient recieved PRN Ativan at beginning of shift as requested. Has voiced no further questions, needs, or concerns this shift. Resting in bed with call light within reach.
[2021-06-27 07:27] VITALS: BP 141/72; PULSE 64; TEMP 98.2
[2021-06-27 11:44] VITALS: BP 129/69; PULSE 71; TEMP 98.1
[2021-06-27 16:37] VITALS: BP 127/65; PULSE 70; TEMP 97.6
--- NOTE | 2021-06-27 19:38 | NUR ---
PT HAD UNEVENTFUL DAY. PLAN TO D/C TOMORROW TO [facility].
--- NOTE | 2021-06-27 20:30 | NUR ---
Initial shift assessment done- alert/oriented, pleasant, denies pain, tele on, NSR, o2 at 3.5L/nc, denies SOB, Up to BSC with assist- unsteady , did void without problems- back to bed, alarm on as reminder. Using call light as needed.
[2021-06-27 20:46] VITALS: BP 119/68; PULSE 73; TEMP 97.5
[2021-06-28 00:21] VITALS: BP 104/49; PULSE 55; TEMP 97.5
[2021-06-28 04:49] VITALS: BP 122/65; PULSE 58; TEMP 97.6
--- NOTE | 2021-06-28 04:51 | NUR ---
Quiet night- Up to bedside commode at this time-no other requests.
[2021-06-28 07:20] LABS: HEMATOCRIT 41.3 % (37.0-47.0); HEMOGLOBIN 13.4 g/dl (12.5-16.0); MEAN CELL VOLUME 97 fl (80.0-100.0); MEAN CORPUSCULAR HEMOGLOBIN 32 pg (27.0-31.0); MEAN CORPUSCULAR HGB CONC 32 g/dl (33.0-37.0); MEAN PLATELET VOLUME 10.5 fl (7.4-10.4); PLATELET COUNT 349 K/mm3 (130-400); RED BLOOD COUNT 4.24 M/mm3 (4.10-5.30); REDCELL DISTRIBUTION WIDTH-CV 14.4 % (11.5-14.5)
[2021-06-28 07:52] LABS: CALCIUM 8.9 mg/dL (8.4-10.2); CREATININE, serum 0.86 mg/dL (0.57-1.11); MAGNESIUM 2.1 mg/dL (1.6-2.6); POTASSIUM 4.2 mmol/L (3.5-4.5)
--- NOTE | 2021-06-28 08:10 | NUR ---
Shift assessment complete. Pt resting in bed. A&Ox4. Heart RRR. Lungs CTA. Small skin tear to left calf w/mepilex. Denies needs or concerns this morning. Plan to d/c this afternoon to [facility]. Continuing to monitor.
[2021-06-28 08:11] LABS: BAND 2 % (0-10); EOSINOPHIL 1 % (0-4); LYMPHOCYTE 8 % (20.0-51.0); METAMYELOCYTE 1 % (0-0); NEUTROPHILS 84 % (42.0-75.2); OVALOCYTES 1+; PLATELET ESTIMATE NORMAL (NORMAL)
[2021-06-28 08:30] VITALS: BP 117/60; PULSE 69; TEMP 97.6
[2021-06-28] MEDS ORDERED: INCRUSE EL62.5 MCG/A IH (08:51)
[2021-06-28] MEDS ORDERED: BETAPACE 80MG80 MG PO (08:51)
[2021-06-28] MEDS ORDERED: DECADRON 1MG TAB1 MG PO (08:53)
[2021-06-28 11:54] VITALS: BP 117/60; PULSE 69; TEMP 97.6
--- NOTE | 2021-06-28 12:17 | NUR ---
Report called to nurse at [facility] and all questions answered. Pt scheduled to be picked up at 1330.
--- NOTE | 2021-06-28 12:56 | NUR ---
Patient is ready for discharge to [facility] today. PARAMJIT contacted Sharon at [facility] and set transport time for 1330. Sharon advised PARAMJIT that patient would be under isolation until she has two negative COVID swabs. Patient to have first one today prior to discharge. PARAMJIT contacted Jerson, patient's and notified him of the above information including transport time. PARAMJIT also met with patient to provide transport time. Both patient and Jerson are in agreement. PARAMJTI faxed discharge orders and negative COVID results to Sharon at [facility]. Discharge Plan: [facility]
[2021-06-28] MEDS ORDERED: ATIVAN 0.50.5 MG/TAB PO (13:09)
== END 2021-06-28 13:56 | DRG 190 ==
LOC: COL.ER 05:27 → MEDICAL 09:30
PROVIDERS: Emergency Medicine; Internal Medicine; Physician Assistant; ADMIT Student in an Organized Health Care Education/Training Program
PROC: 5A2204Z Restoration of Cardiac Rhythm, Single (ICD-10-PCS; principal; 2021-06-24)
DX: J43.9 Emphysema, unspecified (principal); J96.21 Acute and chronic respiratory failure with hypoxia; I47.1 Supraventricular tachycardia; I10 Essential (primary) hypertension; E03.9 Hypothyroidism, unspecified; I25.10 Atherosclerotic heart disease of native coronary artery without angina pectoris; I48.91 Unspecified atrial fibrillation; I08.1 Rheumatic disorders of both mitral and tricuspid valves; Z66 Do not resuscitate; Z20.822 Contact with and (suspected) exposure to COVID-19; I25.2 Old myocardial infarction; E87.6 Hypokalemia; I27.20 Pulmonary hypertension, unspecified; D72.829 Elevated white blood cell count, unspecified; F41.9 Anxiety disorder, unspecified; G43.909 Migraine, unspecified, not intractable, without status migrainosus; E78.5 Hyperlipidemia, unspecified; Z79.82 Long term (current) use of aspirin; Z79.01 Long term (current) use of anticoagulants; Z86.711 Personal history of pulmonary embolism; Z95.5 Presence of coronary angioplasty implant and graft; Z90.710 Acquired absence of both cervix and uterus; Z88.0 Allergy status to penicillin; Z88.2 Allergy status to sulfonamides; Z88.5 Allergy status to narcotic agent; Z87.891 Personal history of nicotine dependence
CPT/HCPCS: 99231-AI; 99232-AI; 99233-AI; 99239; G0378; J0456; J0696; J2704; J2920; J3475; J7030; J7050; J8540

== ENCOUNTER → 2021-07-05 | Outpatient (CLI) | payer MEDICARE, BC ==
[~2021-07-05] MED LIST changes: +BETAPACE 80MG80 MG PO; +DECADRON 1MG TAB1 MG PO; +DRAMAMINE 50MG50 MG PO; +INCRUSE EL62.5 MCG/A IH; +TYLENOL 500MG500 MG PO
[2021-07-05 13:07] LABS: BASO % 0.2 % (0.0-2.0); CALCIUM 8.9 mg/dL (8.4-10.2); CREATININE, serum 0.66 mg/dL (0.57-1.11); EOS # 0.1 K/mm3 (0.0-0.7); EOS % 0.6 % (0-4.0); GRAN # 14.4 K/mm3 (1.4-6.5); GRAN % 87.7 % (42.2-75.2); HEMATOCRIT 39.6 % (37.0-47.0); HEMOGLOBIN 12.3 g/dl (12.5-16.0); LYMPH # 0.6 K/mm3 (1.2-3.4); LYMPH % 3.5 % (20.0-51.0); MEAN CELL VOLUME 99 fl (80.0-100.0); MEAN CORPUSCULAR HEMOGLOBIN 31 pg (27.0-31.0); MEAN CORPUSCULAR HGB CONC 31 g/dl (33.0-37.0); MEAN PLATELET VOLUME 10.8 fl (7.4-10.4); MONO # 1.2 K/mm3 (0.1-0.6); MONO % 7.3 % (1.7-9.3); PLATELET COUNT 361 K/mm3 (130-400); POTASSIUM 3.9 mmol/L (3.5-4.5); RED BLOOD COUNT 4.02 M/mm3 (4.10-5.30); REDCELL DISTRIBUTION WIDTH-CV 14.2 % (11.5-14.5)
== END ==
LOC: ZCOL.LAB 12:36
PROVIDERS: Family Medicine
DX: E78.5 Hyperlipidemia, unspecified (principal)